=== PATIENT | male | born 1960 | race Caucasian/White ===

== ENCOUNTER 2016-11-02 12:49 | Emergency (ER) | payer OTHER ==
[~2016-11-02] VITALS: Wt 120.5 kg
[~2016-11-02 12:49] MED LIST: DOCU-144 PO; FAMO-18 PO; HYDR-762 PO; HYDR25SU23 PR; IBUP800T25 PO; ONDA4TAB35 PO
[2016-11-02] MEDS ORDERED: EPIN0.3P4 INJ (14:11)
[2016-11-02] MEDS ORDERED: IBUP800T25 PO (14:11)
[2016-11-02] MEDS ORDERED: ALPR0.5T PO (14:11)
[2016-11-02] MEDS ORDERED: PRED20TA PO (14:11)
--- NOTE | 2016-11-02 14:16 | ERD ---
ER Documentation Chief Complaint Date/Time DATE: 11/02/16 TIME: 14:13 Chief Complaint TONGUE SWELLING NO STRIDOR INTERMITTENT FOR 2 WKS. NO SOB NOTED. HPI 56-year-old man with multiple complaints including low back pain, tongue swelling, and generalized anxiety. Patient has a long recurrent history of tongue swelling and states the only thing that helps is ibuprofen 800 mg. Patient is also requesting alprazolam for anxiety. Patient denies suicidal homicidal ideation, no fevers or chills, no chest pain or shortness of breath, no calf or leg swelling. Patient denies headache or blurry vision. ROS All systems reviewed and are negative except as per history of present illness. Medications Home Meds Active Scripts Alprazolam* (Xanax*) 0.5 Mg Tab, 0.5 MG PO TID Y for ANXIETY, #12 TAB Prov:ROSE LESTER MD 11/02/16 Epinephrine (Epipen 2-Jordan) 0.3 Mg/0.3 Ml Pen.injctr, 1 EA INJ ONCE Y for ALLERGIC REACTION, #1 EA Prov:ROSE LESTER MD 11/02/16 Prednisone* (Prednisone*) 20 Mg Tab, 40 MG PO DAILY for 4 Days, TAB Prov:ROSE LESTER MD 11/02/16 Ibuprofen* (Motrin*) 800 Mg Tab, 800 MG PO TID Y for PAIN AND/OR INFLAMMATION, # 30 TAB Prov:ROSE LESTER MD 11/02/16 Hydrocortisone Acetate (Anusol-Hc) 25 Mg Supp.rect, 1 SUPP RI BID Y for HEMORROID PAIN/ITCHING, #12 SUPP.RECT Prov:JUDY COLEMAN PA-C 06/22/16 Docusate Sodium* (Colace*) 100 Mg Capsule, 100 MG PO TID, #30 CAP Prov:JUDY COLEMAN PA-C 06/22/16 Famotidine* (Pepcid*) 20 Mg Tablet, 20 MG PO BID, #30 TAB Prov:JUDY COLEMAN PA-C 06/22/16 Ibuprofen* (Motrin*) 800 Mg Tab, 800 MG PO Q6, #30 TAB Prov:JUDY COLEMAN PA-C 06/22/16 Ibuprofen* (Motrin*) 800 Mg Tab, 800 MG PO Q6, #30 TAB Prov:CLAYTON FERREIRA PA-C 05/12/16 Ibuprofen* (Ibuprofen*) 800 Mg Tablet, 800 MG PO Q8H, #30 TAB Prov:BRANDONJOSE MENA 03/18/16 Famotidine* (Pepcid*) 20 Mg Tablet, 20 MG PO BID for 7 Days, TAB Prov:CLAYTON FERREIRA PA-C 02/23/16 Docusate Sodium* (Colace*) 100 Mg Capsule, 100 MG PO BID, #30 CAP Prov:CLAYTON FERREIRA PA-C 02/23/16 Ibuprofen* (Motrin*) 800 Mg Tab, 800 MG PO Q6, #30 TAB Prov:CLAYTON FERREIRA PA-C 02/23/16 Ondansetron Hcl* (Zofran* ODT) 4 mg -ODT Tab.disper, 4 MG PO Q6 Y for NAUSEA AND /OR VOMITING, #10 TAB Prov:CURTIS CHAUDHARI MD 03/07/15 Hydrocodone Bit-Acetaminophen* (Inkom*) 10-325 Mg Tablet, 1 TAB PO Q6 Y for PAIN , #10 TAB Prov:CURTIS CHAUDHARI MD 03/07/15 Allergies Allergies: Coded Allergies: Penicillins (Verified Allergy, Unknown, 05/11/16) PMhx/Soc Anxiety, chronic pain syndrome, chronic recurrent glossal edema 6 years, chronic gastritis Hx Miscellaneous Medical Probl: Yes (THYROID) Hx Alcohol Use: No Hx Substance Use: No Hx Tobacco Use: No FmHx Family History: No diabetes Physical Exam Vitals Vital Signs Date Time Temp Pulse Resp B/P Pulse Ox O2 Delivery O2 Flow Rate FiO2 11/02/16 12:54 97.5 102 22 127/83 98 Physical Exam GENERAL: Well-developed, well-nourished, well-hydrated, anxious HEENT: Moist mucous membranes, pink conjunctiva, no cervical spine tenderness or step-off deformities, no goiter, no jaundice or icterus, positive macroglossia without evidence of glossal edema or submandibular induration. NEURO: Alert and oriented 3, cranial nerves II through XII intact bilaterally, pupils equal round reactive to light, no focal deficits or facial asymmetry, sensation intact distally Strength 5/5 in upper and lower extremities bilaterally CARDIAC: Regular rate and rhythm, no murmurs rubs or gallops LUNGS: Clear bilaterally no wheezing crackles or stridor ABDOMEN: Soft nontender, no guarding, no rigidity, no rebound, no psoas sign no obturator sign. Normoactive bowel sounds SKIN: Warm and dry to touch, no abrasions, contusions, or hematomas, no lacerations, no ecchymosis, no target lesions, and without ulcers EXTREMITIES: No clubbing cyanosis or edema, calves are bilaterally symmetrical, no Homans sign, no popliteal cord sign. Distal pulses equal and bilateral PSYCH: Anxious Results 24 hrs Current Medications Medications (Trade) Dose Ordered Sig/Magen Route PRN Reason Start Time Stop Time Status Last Admin Dose Admin Ibuprofen (Motrin) 800 mg ONCE ONCE PO 11/02/16 14:30 11/02/16 14:31 DC 11/02/16 14:26 Prednisone (Prednisone) 40 mg ONCE ONCE PO 11/02/16 14:30 11/02/16 14:31 DC 11/02/16 14:26 Procedures/MDM My suspicion for acute allergic reaction is low although I did administered ibuprofen 800 mg p.o. prednisone 40 mg p.o. I will manage him as an outpatient with anxiolytics and told him to follow-up with his PMD for continued outpatient management. Differential diagnoses considered, included but not limited to peritonsillar abscess, Kana's angina, anaphylaxis, cancer, abdominal aortic aneurysm, sepsis , stroke, meningitis, encephalitis, pneumonia, appendicitis, cholecystitis, bowel obstruction, pyelonephritis, nephrolithiasis, cystitis, as well as metabolic, hematologic, and electrolyte abnormalities. As well as abscess, cellulitis, fractures, and dislocations. Patient feels much better at this time, and vital signs are normal, symptoms have improved. I did give strict instructions to return to the ED if symptoms continue or worsen, patient will otherwise follow-up with primary care physician. Patient understood instructions and agreed to plan. Departure Diagnosis: Primary Impression: Anxiety Additional Impressions: Back strain Encounter type: initial encounter Qualified Code: S39.012A - Back strain, initial encounter Allergic reaction Encounter type: initial encounter Qualified Code: T78.40XA - Allergic reaction, initial encounter Macroglossia, congenital Condition: Good Patient Instructions: Allergic Reaction, Other (Local), Anxiety Reaction ROSE LESTER MD Nov 02, 2016 14:16
[2016-11-02] MEDS ORDERED: predniSONE 20 MG TAB PO ONE (14:30)
[2016-11-02] MEDS ORDERED: IBUPROFEN 800 MG TAB PO ONE (14:30)
== END 2016-11-02 14:28 | disposition home or self-care (01) ==
LOC: FTE 12:49
DX: F41.9 Anxiety disorder, unspecified (principal); S39.012A Strain of muscle, fascia and tendon of lower back, initial encounter; Q38.2 Macroglossia; X58.XXXA Exposure to other specified factors, initial encounter; Y92.9 Unspecified place or not applicable
CPT/HCPCS: J7512; Z7502; Z7610; 99284

== ENCOUNTER 2017-01-21 14:57 | Emergency (ER) | payer OTHER ==
[~2017-01-21] VITALS: Ht 170.2 cm; Wt 118.0 kg
[~2017-01-21 14:57] MED LIST changes: +ALPR0.5T PO; +EPIN0.3P4 INJ; +PRED20TA PO
[2017-01-21 14:59] VITALS: Ht 170.2 cm; Wt 118.0 kg
[2017-01-21] MEDS ORDERED: DIPHENHYDRAMINE 50 MG INJ IV STA (17:38)
[2017-01-21] MEDS ORDERED: SOD CHLORIDE 0.9% 1,000 ML IV STA (17:38)
[2017-01-21] MEDS ORDERED: FAMOTIDINE 20 MG INJ IV STA (17:38)
[2017-01-21] MEDS ORDERED: METHYLPREDNISOLONE 125 MG INJ IV STA (17:38)
[2017-01-21 18:11] LABS: ADD SCAN DIFF NO
[2017-01-21 18:13] LABS: BASOPHILS % 0.2 % (0.0-2.0); EOSINOPHILS # 0.2 10^3/ul (0.0-0.5); EOSINOPHILS % 1.6 % (0.0-7.0); HEMATOCRIT 47.2 % (42.0-52.0); HEMOGLOBIN 15.3 g/dl (14.0-18.0); LYMPHOCYTES # 1.7 10^3/ul (0.8-2.9); LYMPHOCYTES % 17.8 % (15.0-51.0); MEAN CORPUSCULAR HEMOGLOBIN 30.9 pg (29.0-33.0); MEAN CORPUSCULAR HGB CONC 32.4 g/dl (32.0-37.0); MEAN CORPUSCULAR VOLUME 95.4 fl (82.0-101.0); MONOCYTE # 0.9 10^3/ul (0.3-0.9); MONOCYTES % 9.2 % (0.0-11.0); NEUTROPHIL # 6.8 10^3/ul (1.6-7.5); NEUTROPHILS % 70.8 % (39.0-77.0); PLATELET COUNT 265 10^3/UL (140-415); RED BLOOD COUNT 4.95 10^6/ul (4.70-6.10); RED CELL DISTRIBUTION WIDTH 14.3 % (11.5-14.5); WHITE BLOOD COUNT 9.6 10^3/ul (4.8-10.8)
[2017-01-21 18:22] LABS: POTASSIUM 3.8 mmol/L (3.5-5.1)
[2017-01-21 18:24] LABS: ALBUMIN/GLOBULIN RATIO 1.21; BILIRUBIN,INDIRECT 0.2 mg/dl (0-1.1); BILIRUBIN,TOTAL 0.2 mg/dl (0.2-1.3); CREATININE 1.1 mg/dl (0.61-1.24)
[2017-01-21 18:25] LABS: CALCIUM 9.1 mg/dl (8.4-10.2)
[2017-01-21 18:35] LABS: TOTAL PROTEIN 7.3 g/dl (6.1-8.1)
--- NOTE | 2017-01-21 20:17 | ERA ---
ER Documentation Chief Complaint Date/Time DATE: 01/21/17 TIME: 20:14 Chief Complaint ABDOMINAL PAIN X 3 WEEKS AND TONGUE PAIN FOR YEARS HPI This is a 56-year-old male who states that he said diarrhea for 3 weeks is watery and brown and says that his tongue is swelling. States he had a swollen tongue from month and was seen at other ERs and received steroids. He has no difficulty swallowing or speaking no voice changes no shortness of breath no rash. Patient is very tangential about his complaints. When he sticks out his tongue he purposefully bites it so that it gets more swollen looking ROS All systems reviewed and are negative except as per history of present illness. Medications Home Meds Active Scripts Alprazolam* (Xanax*) 0.5 Mg Tab, 0.5 MG PO TID Y for ANXIETY, #12 TAB Prov:ROSE LESTER MD 11/02/16 Epinephrine (Epipen 2-Jordan) 0.3 Mg/0.3 Ml Pen.injctr, 1 EA INJ ONCE Y for ALLERGIC REACTION, #1 EA Prov:ROSE LESTER MD 11/02/16 Prednisone* (Prednisone*) 20 Mg Tab, 40 MG PO DAILY for 4 Days, TAB Prov:ROSE LESTER MD 11/02/16 Ibuprofen* (Motrin*) 800 Mg Tab, 800 MG PO TID Y for PAIN AND/OR INFLAMMATION, # 30 TAB Prov:ROSE LESTER MD 11/02/16 Hydrocortisone Acetate (Anusol-Hc) 25 Mg Supp.rect, 1 SUPP [place] BID Y for HEMORROID PAIN/ITCHING, #12 SUPP.RECT Prov:JUDY COLEMAN PA-C 06/22/16 Docusate Sodium* (Colace*) 100 Mg Capsule, 100 MG PO TID, #30 CAP Prov:JUDY COLEMAN PA-C 06/22/16 Famotidine* (Pepcid*) 20 Mg Tablet, 20 MG PO BID, #30 TAB Prov:JUDY COLEMAN PA-C 06/22/16 Ibuprofen* (Motrin*) 800 Mg Tab, 800 MG PO Q6, #30 TAB Prov:JUDY COLEMAN PA-C 06/22/16 Ibuprofen* (Motrin*) 800 Mg Tab, 800 MG PO Q6, #30 TAB Prov:CLAYTON FERREIRAC 05/12/16 Ibuprofen* (Ibuprofen*) 800 Mg Tablet, 800 MG PO Q8H, #30 TAB Prov:TAYLORJOSE FOSS RAJESH 03/18/16 Famotidine* (Pepcid*) 20 Mg Tablet, 20 MG PO BID for 7 Days, TAB Prov:CLAYTON FERREIRAC 02/23/16 Docusate Sodium* (Colace*) 100 Mg Capsule, 100 MG PO BID, #30 CAP Prov:CLAYTON FERREIRA PA-C 02/23/16 Ibuprofen* (Motrin*) 800 Mg Tab, 800 MG PO Q6, #30 TAB Prov:CLAYTON FERREIRA PA-C 02/23/16 Ondansetron Hcl* (Zofran* ODT) 4 mg -ODT Tab.disper, 4 MG PO Q6 Y for NAUSEA AND /OR VOMITING, #10 TAB Prov:CURTIS CHAUDHARI MD 03/07/15 Hydrocodone Bit-Acetaminophen* (Aldrich*) 10-325 Mg Tablet, 1 TAB PO Q6 Y for PAIN , #10 TAB Prov:CURTIS CAHUDHARI MD 03/07/15 Allergies Allergies: Coded Allergies: Penicillins (Verified Allergy, Unknown, 05/11/16) PMhx/Soc History of Surgery: Yes (ABDOMINAL SURGERY) Anesthesia Reaction: No Hx Neurological Disorder: No Hx Respiratory Disorders: No Hx Cardiac Disorders: No Hx Psychiatric Problems: No Hx Miscellaneous Medical Probl: Yes (THYROID) Hx Alcohol Use: No Hx Substance Use: No Hx Tobacco Use: Yes (occasional) Smoking Status: Current some day smoker FmHx Family History: No coronary disease Physical Exam Vitals Vital Signs Date Time Temp Pulse Resp B/P Pulse Ox O2 Delivery O2 Flow Rate FiO2 01/21/17 14:59 98.4 86 20 168/95 98 Physical Exam Const: Well-developed, well-nourished Head: Atraumatic, normocephalic Eyes: Normal Conjunctiva, PERRLA, EOMI, normal sclera, no nystagmus ENT: Normal External Ears, Nose and Mouth, moist mucus membranes. Neck: Full range of motion. No meningismus, no lymphadenopathy. Resp: Clear to auscultation bilaterally, no wheezing, rhonchi, rales Cardio: Regular rate and rhythm, no murmurs, S1 S2 present Abd: Soft, non tender x 4, non distended. Normal bowel sounds, no guarding or rebound, no pulsitile abdominal masses or bruits Skin: No petechiae or rashes, no ecchymosis , no maculopapular rash Back: No midline or flank tenderness Ext: No cyanosis, or edema, FROM x 4, normal inspection, neurovascularly intact x 4 Neur: Awake and alert, STR 5/5 x 4, sensation intact x 4, no focal findings, cerebellum intact Psych: Normal Mood and Affect Result Diagram: 01/21/17 1745 01/21/17 1745 Results 24 hrs Laboratory Tests Test 01/21/17 17:45 White Blood Count 9.610^3/ul Red Blood Count 4.9510^6/ul Hemoglobin 15.3g/dl Hematocrit 47.2% Mean Corpuscular Volume 95.4fl Mean Corpuscular Hemoglobin 30.9pg Mean Corpuscular Hemoglobin Concent 32.4g/dl Red Cell Distribution Width 14.3% Platelet Count 45027^3/UL Mean Platelet Volume 10.0fl Neutrophils % 70.8% Lymphocytes % 17.8% Monocytes % 9.2% Eosinophils % 1.6% Basophils % 0.2% Nucleated Red Blood Cells % 0.0/100WBC Neutrophils # 6.810^3/ul Lymphocytes # 1.710^3/ul Monocytes # 0.910^3/ul Eosinophils # 0.210^3/ul Basophils # 0.010^3/ul Nucleated Red Blood Cells # 0.010^3/ul Sodium Level 140mmol/L Potassium Level 3.8mmol/L Chloride Level 103mmol/L Carbon Dioxide Level 28mmol/L Anion Gap 13 Blood Urea Nitrogen 17mg/dl Creatinine 1.10mg/dl Glucose Level 90mg/dl Calcium Level 9.1mg/dl Total Bilirubin 0.2mg/dl Direct Bilirubin 0.00mg/dl Indirect Bilirubin 0.2mg/dl Aspartate Amino Transf (AST/SGOT) 14IU/L Alanine Aminotransferase (ALT/SGPT) 26IU/L Alkaline Phosphatase 87IU/L Total Protein 7.3g/dl Albumin 4.0g/dl Globulin 3.30g/dl Albumin/Globulin Ratio 1.21 Current Medications Medications (Trade) Dose Ordered Sig/Magen Route PRN Reason Start Time Stop Time Status Last Admin Dose Admin Sodium Chloride (NS) 1,000 ml @ 1,000 mls/hr Q1H STAT IV 01/21/17 17:38 01/21/17 18:37 DC 01/21/17 17:57 Diphenhydramine HCl (Benadryl) 25 mg ONCE STAT IV 01/21/17 17:38 01/21/17 17:40 DC 01/21/17 17:57 Famotidine (Pepcid Iv) 20 mg ONCE STAT IV 01/21/17 17:38 01/21/17 17:40 DC 01/21/17 17:57 Methylprednisolone Sodium Succinate (Solu-Medrol) 125 mg ONCE STAT IV 01/21/17 17:38 01/21/17 17:40 DC 01/21/17 17:57 Procedures/MDM The patient eloped from the ER. Was unable to go over his labs with him and provide disposition Departure Diagnosis: Primary Impression: Diarrhea Qualified Code: R19.7 - Diarrhea, unspecified type Condition: NAE Bonilla DO January 21, 2017 20:17
== END 2017-01-21 19:52 | disposition left against medical advice (07) ==
LOC: E/R 14:57
DX: R19.7 Diarrhea, unspecified (principal)
CPT/HCPCS: 36415; 80053; 85025; 96374; 96375; J1200; J2930; J7030; Z7502; Z7610

== ENCOUNTER 2017-01-25 08:00 | Emergency (ER) | payer OTHER ==
[~2017-01-25] VITALS: Ht 167.6 cm; Wt 112.0 kg
[2017-01-25 08:04] VITALS: Ht 167.6 cm; Wt 112.0 kg
[2017-01-25] MEDS ORDERED: IBUP-1542 PO (08:43)
--- NOTE | 2017-01-25 16:05 | ERD ---
ER Documentation Chief Complaint Date/Time DATE: 01/25/17 TIME: 16:02 Chief Complaint SORE THROAT , TONGUE SWELLING X FEW WEEKS HPI 56-year-old man complains of tongue swelling similar multiple previous episodes. This is been going on for a few weeks, he is also here requesting his opioid and benzodiazepine prescriptions, which he states he takes for chronic symptoms. He states ibuprofen helps with his tongue swelling. He denies fevers or chills, no difficulty swallowing, no chest pain or shortness of breath. ROS All systems reviewed and are negative except as per history of present illness. Medications Home Meds Active Scripts Ibuprofen* (Motrin*) 600 Mg Tab, 600 MG PO Q8 for PAIN AND/OR INFLAMMATION, #30 TAB Prov:ROSE LESTER MD 01/25/17 Alprazolam* (Xanax*) 0.5 Mg Tab, 0.5 MG PO TID Y for ANXIETY, #12 TAB Prov:ROSE LESTER MD 11/02/16 Epinephrine (Epipen 2-Jordan) 0.3 Mg/0.3 Ml Pen.injctr, 1 EA INJ ONCE Y for ALLERGIC REACTION, #1 EA Prov:ROSE LESTER MD 11/02/16 Prednisone* (Prednisone*) 20 Mg Tab, 40 MG PO DAILY for 4 Days, TAB Prov:ROSE LESTER MD 11/02/16 Ibuprofen* (Motrin*) 800 Mg Tab, 800 MG PO TID Y for PAIN AND/OR INFLAMMATION, # 30 TAB Prov:ROSE LESTER MD 11/02/16 Hydrocortisone Acetate (Anusol-Hc) 25 Mg Supp.rect, 1 SUPP [place] BID Y for HEMORROID PAIN/ITCHING, #12 SUPP.RECT Prov:JUDY COLEMAN PA-C 06/22/16 Docusate Sodium* (Colace*) 100 Mg Capsule, 100 MG PO TID, #30 CAP Prov:JUDY COLEMAN PA-C 06/22/16 Famotidine* (Pepcid*) 20 Mg Tablet, 20 MG PO BID, #30 TAB Prov:JUDY COLEMAN PA-C 06/22/16 Ibuprofen* (Motrin*) 800 Mg Tab, 800 MG PO Q6, #30 TAB Prov:JUDY COLEMAN PA-C 06/22/16 Ibuprofen* (Motrin*) 800 Mg Tab, 800 MG PO Q6, #30 TAB Prov:CLAYTON FERREIRA PA-C 05/12/16 Ibuprofen* (Ibuprofen*) 800 Mg Tablet, 800 MG PO Q8H, #30 TAB Prov:JOSE TAYLOR RAJESH 03/18/16 Famotidine* (Pepcid*) 20 Mg Tablet, 20 MG PO BID for 7 Days, TAB Prov:CLAYTON FERREIRA PA-C 02/23/16 Docusate Sodium* (Colace*) 100 Mg Capsule, 100 MG PO BID, #30 CAP Prov:CLAYTON FERREIRA PA-C 02/23/16 Ibuprofen* (Motrin*) 800 Mg Tab, 800 MG PO Q6, #30 TAB Prov:CLAYTON FERREIRA PA-C 02/23/16 Ondansetron Hcl* (Zofran* ODT) 4 mg -ODT Tab.disper, 4 MG PO Q6 Y for NAUSEA AND /OR VOMITING, #10 TAB Prov:CURTIS CHAUDHARI MD 03/07/15 Hydrocodone Bit-Acetaminophen* ([place]*) 10-325 Mg Tablet, 1 TAB PO Q6 Y for PAIN , #10 TAB Prov:CURTIS CHAUDHARI MD 03/07/15 Allergies Allergies: Coded Allergies: Penicillins (Verified Allergy, Unknown, 05/11/16) PMhx/Soc Macroglossia, opioid dependence, chronic pain History of Surgery: Yes (ABDOMINAL SURGERY) Anesthesia Reaction: No Hx Neurological Disorder: No Hx Respiratory Disorders: No Hx Cardiac Disorders: No Hx Psychiatric Problems: No Hx Miscellaneous Medical Probl: Yes (THYROID) Hx Alcohol Use: No Hx Substance Use: No Hx Tobacco Use: Yes (occasional) Smoking Status: Current some day smoker FmHx Family History: No diabetes Physical Exam Vitals Vital Signs Date Time Temp Pulse Resp B/P Pulse Ox O2 Delivery O2 Flow Rate FiO2 01/25/17 08:04 98.2 98 18 171/86 98 Physical Exam GENERAL: Well-developed, well-nourished, well-hydrated, in no apparent distress , looks nontoxic in appearance HEENT: Moist mucous membranes, pink conjunctiva, no cervical spine tenderness or step-off deformities, no goiter, no jaundice or icterus, extraocular movements intact without pain. No submandibular induration, and no pharyngeal erythema NEURO: Alert and oriented 3, cranial nerves II through XII intact bilaterally, pupils equal round reactive to light, no focal deficits or facial asymmetry, sensation intact distally Strength 5/5 in upper and lower extremities bilaterally CARDIAC: Regular rate and rhythm, no murmurs rubs or gallops LUNGS: Clear bilaterally no wheezing crackles or stridor ABDOMEN: Soft nontender, no guarding, no rigidity, no rebound, no psoas sign no obturator sign. Normoactive bowel sounds SKIN: Warm and dry to touch, no abrasions, contusions, or hematomas, no lacerations, no ecchymosis, no target lesions, and without ulcers EXTREMITIES: No clubbing cyanosis or edema, calves are bilaterally symmetrical, no Homans sign, no popliteal cord sign. Distal pulses equal and bilateral PSYCH: Normal affect without agitation or irritability Procedures/MDM Physical examination is unremarkable, patient bites his tongue during examination. He may have borderline macroglossia although no signs of anaphylaxis or allergic reaction. There is no soft tissue induration, edema, or erythema. I deferred all opioid and benzodiazepine prescriptions to his PMD although agreed to fill an ibuprofen prescription. Differential diagnoses considered, included but not limited to acute coronary syndrome, pulmonary embolism, aortic dissection, abdominal aortic aneurysm, sepsis, stroke, meningitis, encephalitis, pneumonia, appendicitis, cholecystitis , bowel obstruction, pyelonephritis, nephrolithiasis, cystitis, as well as metabolic, hematologic, and electrolyte abnormalities. As well as abscess, cellulitis, fractures, and dislocations. Patient feels much better at this time, and vital signs are normal, symptoms have improved. I did give strict instructions to return to the ED if symptoms continue or worsen, patient will otherwise follow-up with primary care physician. Patient understood instructions and agreed to plan. Departure Diagnosis: Primary Impression: Macroglossia, congenital Additional Impression: Encounter for medication refill Condition: Good Patient Instructions: Chronic Pain Referrals: BALDOMERO HENDRICKS MD [facility] YOU HAVE RECEIVED A MEDICAL SCREENING EXAM AND THE RESULTS INDICATE THAT YOU DO NOT HAVE A CONDITION THAT REQUIRES URGENT TREATMENT IN THE EMERGENCY DEPARTMENT. FURTHER EVALUATION AND TREATMENT OF YOUR CONDITION CAN WAIT UNTIL YOU ARE SEEN IN YOUR DOCTORS OFFICE WITHIN THE NEXT 1-2 DAYS. IT IS YOUR RESPONSIBILITY TO MAKE AN APPOINTMENT FOR FOLOW-UP CARE. IF YOU HAVE A PRIMARY DOCTOR --you should call your primary doctor and schedule an appointment IF YOU DO NOT HAVE A PRIMARY DOCTOR YOU CAN CALL OUR PHYSICIAN REFERRAL HOTLINE AT IF YOU CAN NOT AFFORD TO SEE A PHYSICIAN YOU CAN CHOSE FROM THE FOLLOWING [facility] [address] [facility] [address] [facility] [address] [facility] [address] [facility] [address] [facility] [facility] [address] [facility]. [facility] YOU HAVE RECEIVED A MEDICAL SCREENING EXAM AND THE RESULTS INDICATE THAT YOU DO NOT HAVE A CONDITION THAT REQUIRES URGENT TREATMENT IN THE EMERGENCY DEPARTMENT. FURTHER EVALUATION AND TREATMENT OF YOUR CONDITION CAN WAIT UNTIL YOU ARE SEEN IN YOUR DOCTORS OFFICE WITHIN THE NEXT 1-2 DAYS. IT IS YOUR RESPONSIBILITY TO MAKE AN APPOINTMENT FOR FOLOW-UP CARE. IF YOU HAVE A PRIMARY DOCTOR --you should call your primary doctor and schedule and appointment IF YOU DO NOT HAVE A PRIMARY DOCTOR YOU CAN CALL OUR PHYSICIAN REFERRAL HOTLINE AT . IF YOU CAN NOT AFFORD TO SEE A PHYSICIAN YOU CAN CHOSE FROM THE FOLLOWING [facility]: [facility] [address] [place] [address] [facility] [address] [place] [address] [facility] [address] [place] [address] ROSE LESTER MD January 25, 2017 16:05
== END 2017-01-25 08:54 | disposition home or self-care (01) ==
LOC: FTE 08:00
DX: Q38.2 Macroglossia (principal); F17.210 Nicotine dependence, cigarettes, uncomplicated; Z76.0 Encounter for issue of repeat prescription
CPT/HCPCS: 99283

== ENCOUNTER 2017-06-24 09:27 | Emergency (ER) | payer OTHER ==
[~2017-06-24] VITALS: Ht 167.6 cm; Wt 113.5 kg
[~2017-06-24 09:27] MED LIST changes: -FAMO-18 PO; +FAMO-96 PO; +IBUP-1542 PO
[2017-06-24 09:33] VITALS: Ht 167.6 cm; Wt 113.5 kg
[2017-06-24] MEDS ORDERED: IBUPROFEN 800 MG TAB PO ONE (10:30)
[2017-06-24] MEDS ORDERED: DEXAMETHASONE 10 MG/ML 1 ML INJ IM ONE (10:30)
[2017-06-24] MEDS ORDERED: DOCU-144 PO (11:25)
[2017-06-24] MEDS ORDERED: FAMO-96 PO (11:25)
[2017-06-24] MEDS ORDERED: IBUP800T25 PO (11:25)
[2017-06-24] MEDS ORDERED: MED4DP PO (11:40)
--- NOTE | 2017-06-24 12:50 | ERD ---
ER Documentation Chief Complaint Date/Time DATE: 06/24/17 TIME: 12:44 Chief Complaint throat swelling HPI This is a 57-year-old male presents to the ER complaining of tongue swelling due to thyroid "acting up." The patient states that he has a thyroid disorder, unknown whether hypothyroid or hyperthyroid and he is currently not taking any medications for his thyroid problems. He states that he has had tongue swelling over the last 2 years and the last episode began 20 days ago. He states that ibuprofen 800 mg helps him with the swelling. He has run out of ibuprofen. Patient denies any lip swelling. He denies eating any new foods, or taking any new medications. He has an allergy to penicillin, has not had any penicillin. Patient denies any chest pain, shortness of breath, difficulty in breathing. Does admit to some mild sore throat, which is worse whenever he swallows. ROS 12 point review of systems was done, all negative except per HPI. Medications Home Meds Active Scripts Methylprednisolone* (Medrol* DOSE PACK) 4 Mg/Dose-Pack Tab.ds.pk, 4 MG PO . DIRECTED for 6 Days, PACKET Prov:SHARITA TALBOT 06/24/17 Docusate Sodium* (Colace*) 100 Mg Capsule, 100 MG PO TID, #30 CAP Prov:SHARITA TALBOT 06/24/17 Famotidine* (Pepcid*) 20 Mg Tablet, 20 MG PO BID for 14 Days, TAB Prov:SHARITA TALBOT 06/24/17 Ibuprofen* (Motrin*) 800 Mg Tab, 800 MG PO Q8, #30 TAB Prov:SHARITA TALBOT 06/24/17 Ibuprofen* (Motrin*) 600 Mg Tab, 600 MG PO Q8 for PAIN AND/OR INFLAMMATION, #30 TAB Prov:ROSE LESTER MD 01/25/17 Alprazolam* (Xanax*) 0.5 Mg Tab, 0.5 MG PO TID Y for ANXIETY, #12 TAB Prov:ROSE LESTER MD 11/02/16 Epinephrine (Epipen 2-[place]) 0.3 Mg/0.3 Ml Pen.injctr, 1 EA INJ ONCE Y for ALLERGIC REACTION, #1 EA Prov:ROSE LESTER MD 11/02/16 Prednisone* (Prednisone*) 20 Mg Tab, 40 MG PO DAILY for 4 Days, TAB Prov:ROSE LESTER MD 11/02/16 Ibuprofen* (Motrin*) 800 Mg Tab, 800 MG PO TID Y for PAIN AND/OR INFLAMMATION, # 30 TAB Prov:ROSE LESTER MD 11/02/16 Hydrocortisone Acetate (Anusol-Hc) 25 Mg Supp.rect, 1 SUPP CO BID Y for HEMORROID PAIN/ITCHING, #12 SUPP.RECT Prov:JUDY COLEMAN-C 06/22/16 Docusate Sodium* (Colace*) 100 Mg Capsule, 100 MG PO TID, #30 CAP Prov:JUDY COLEMAN-C 06/22/16 Famotidine* (Pepcid*) 20 Mg Tablet, 20 MG PO BID, #30 TAB Prov:JUDY COLEMAN-C 06/22/16 Ibuprofen* (Motrin*) 800 Mg Tab, 800 MG PO Q6, #30 TAB Prov:JUDY COLEMAN-C 06/22/16 Ibuprofen* (Motrin*) 800 Mg Tab, 800 MG PO Q6, #30 TAB Prov:CLAYTON FERREIRAC 05/12/16 Ibuprofen* (Ibuprofen*) 800 Mg Tablet, 800 MG PO Q8H, #30 TAB Prov:JOSE TAYLORC 03/18/16 Famotidine* (Pepcid*) 20 Mg Tablet, 20 MG PO BID for 7 Days, TAB Prov:CLAYTON FERREIRA-C 02/23/16 Docusate Sodium* (Colace*) 100 Mg Capsule, 100 MG PO BID, #30 CAP Prov:CLAYTON FERREIRA-C 02/23/16 Ibuprofen* (Motrin*) 800 Mg Tab, 800 MG PO Q6, #30 TAB Prov:CLAYTON FERREIRA-C 02/23/16 Ondansetron Hcl* (Zofran* ODT) 4 mg -ODT Tab.disper, 4 MG PO Q6 Y for NAUSEA AND /OR VOMITING, #10 TAB Prov:CURTIS CHAUDHARI MD 03/07/15 Hydrocodone Bit-Acetaminophen* ([place]*) 10-325 Mg Tablet, 1 TAB PO Q6 Y for PAIN , #10 TAB Prov:CURTIS CHAUDHARI MD 03/07/15 Allergies Allergies: Coded Allergies: Penicillins (Verified Allergy, Unknown, 06/24/17) PMhx/Soc History of Surgery: Yes (ABDOMINAL SURGERY) Anesthesia Reaction: No Hx Neurological Disorder: No Hx Respiratory Disorders: No Hx Cardiac Disorders: No Hx Psychiatric Problems: No Hx Miscellaneous Medical Probl: Yes (THYROID) Hx Alcohol Use: No Hx Substance Use: No Hx Tobacco Use: Yes (occasional) Smoking Status: Current every day smoker Physical Exam Vitals Vital Signs Date Time Temp Pulse Resp B/P Pulse Ox O2 Delivery O2 Flow Rate FiO2 06/24/17 09:33 98.2 80 20 138/87 97 Physical Exam GENERAL: The patient is well developed and appropriate for usual state of health , in no apparent distress. HEENT: Atraumatic. Conjunctivae are pink. Pupils equal, round, and reactive to light. Extraocular muscles are grossly intact. Bilateral tympanic membranes are clear with no evidence of erythema, effusion or dulling of the light reflex. The oropharynx is clear with no erythema or exudates. Patient is normal. Clear , patent airway. Enlarged tongue, though this is likely his baseline. No eye or lip swelling. CHEST: Clear to auscultation bilaterally. There are no rales, wheezes or rhonchi. HEART: Regular rate and rhythm. No murmurs, clicks, rubs or gallops. NEURO: Alert and oriented. SKIN: There is no apparent rash or petechia. The skin is warm and dry. Results 24 hrs Current Medications Medications (Trade) Dose Ordered Sig/Magen Route PRN Reason Start Time Stop Time Status Last Admin Dose Admin Ibuprofen (Motrin) 800 mg ONCE ONCE PO 06/24/17 10:30 06/24/17 10:31 DC 06/24/17 10:09 Dexamethasone (Decadron) 10 mg ONCE ONCE IM 06/24/17 10:30 06/24/17 10:31 DC 06/24/17 10:10 Procedures/MDM This is a 57-year-old male presents to the ER with tongue swelling. Patient was given 800 mg Ibuprofen in the ER and Decadron. Patient states that he felt much better. Ports that his symptoms are always improved with ibuprofen, which she has run out of and is requesting a refill for. He is also requesting a refill for docusate, famotidine. Patient does not have any significant abnormalities on physical examination. While patient's tongue does appear to be large, there is no evidence of significant swelling. He does not have any facial edema. The patient's airway is patent he does not have any difficulty in breathing, wheezing. No evidence of angioedema, airway compromise, inability to handle oral secretions or stridor. Patient's mentation is normal. There is an allergic reaction as patient has not had any contact with any new substances and has had this over the last few years. He also does not have any rashes. Patient will be sent home with a short course of steroids to help with swelling. He is to follow-up with his primary care doctor within 1-2 days or return to ER sooner if symptoms worsen. My medical decision making shared with the patient understands and agrees with plan. Departure Diagnosis: Primary Impression: Tongue swelling Condition: Stable Patient Instructions: Self-Care for Sore Throats Additional Instructions: Call your primary care doctor TOMORROW for an appointment during the next 1-2 days.See the doctor sooner or return here if your condition worsens before your appointment time. SHARITA TALBOT Jun 24, 2017 12:50
== END 2017-06-24 11:52 | disposition home or self-care (01) ==
LOC: FTE 09:27
DX: K14.8 Other diseases of tongue (principal); F17.210 Nicotine dependence, cigarettes, uncomplicated
CPT/HCPCS: 87880; 96372; J1100; Z7502; Z7610

== ENCOUNTER 2017-07-26 14:50 | Emergency (ER) | payer OTHER ==
[~2017-07-26] VITALS: Ht 175.3 cm; Wt 119.0 kg
[~2017-07-26 14:50] MED LIST changes: +MED4DP PO
[2017-07-26 14:52] VITALS: Ht 175.3 cm; Wt 119.0 kg
[2017-07-26] MEDS ORDERED: PRED20TA PO (16:17)
[2017-07-26] MEDS ORDERED: IBUP800T25 PO (16:17)
[2017-07-26] MEDS ORDERED: DOCU-144 PO (16:17)
[2017-07-26] MEDS ORDERED: FAMO20TA18 PO (16:17)
--- NOTE | 2017-07-26 16:20 | ERD ---
ER Documentation Chief Complaint Chief Complaint swelling of tongue x 3 days , no sob , talking in full sentences HPI This patient is a 57-year-old male who presents complaining of swelling of his tongue that he has had for 3 days. He states this happens about once a month as he has a thyroid issue is not sure if it is hyper or hypo-. He has been seen here multiple times for this. He has good relief of his symptoms with Pepcid, Colace, steroids, and Motrin and he would like a refill of these medications. He has no difficulty breathing, no difficulty speaking. No fever. No rash. No other complaints. ROS All systems reviewed and are negative except as per history of present illness. Medications Home Meds Active Scripts Prednisone* (Prednisone*) 20 Mg Tab, 40 MG PO DAILY for 4 Days, TAB Prov:JOSE TAYLOR PA-C 07/26/17 Famotidine* (Famotidine*) 20 Mg Tablet, 20 MG PO BID, #60 TAB Prov:JOSE TAYLOR PA-C 07/26/17 Docusate Sodium* (Colace*) 100 Mg Capsule, 100 MG PO BID, #60 CAP Prov:JOSE TAYLOR PA-C 07/26/17 Ibuprofen* (Motrin*) 800 Mg Tab, 800 MG PO Q6, #30 TAB Prov:JOSE TAYLOR PA-C 07/26/17 Methylprednisolone* (Medrol* DOSE PACK) 4 Mg/Dose-Pack Tab.ds.pk, 4 MG PO . DIRECTED for 6 Days, PACKET Prov:ANDER TALBOTNA [place] 06/24/17 Docusate Sodium* (Colace*) 100 Mg Capsule, 100 MG PO TID, #30 CAP Prov:ANDER TALBOTNA C 06/24/17 Famotidine* (Pepcid*) 20 Mg Tablet, 20 MG PO BID for 14 Days, TAB Prov:DAHIANA,SHARITA C 06/24/17 Ibuprofen* (Motrin*) 800 Mg Tab, 800 MG PO Q8, #30 TAB Prov:DAHIANASHARITA C 06/24/17 Ibuprofen* (Motrin*) 600 Mg Tab, 600 MG PO Q8 for PAIN AND/OR INFLAMMATION, #30 TAB Prov:ROSE LESTER MD 01/25/17 Alprazolam* (Xanax*) 0.5 Mg Tab, 0.5 MG PO TID Y for ANXIETY, #12 TAB Prov:ROSE LESTER MD 11/02/16 Epinephrine (Epipen 2-[place]) 0.3 Mg/0.3 Ml Pen.injctr, 1 EA INJ ONCE Y for ALLERGIC REACTION, #1 EA Prov:ROSE LESTER MD 11/02/16 Prednisone* (Prednisone*) 20 Mg Tab, 40 MG PO DAILY for 4 Days, TAB Prov:ROSE LESTER MD 11/02/16 Ibuprofen* (Motrin*) 800 Mg Tab, 800 MG PO TID Y for PAIN AND/OR INFLAMMATION, # 30 TAB Prov:ROSE LESTER MD 11/02/16 Hydrocortisone Acetate (Anusol-Hc) 25 Mg Supp.rect, 1 SUPP [place] BID Y for HEMORROID PAIN/ITCHING, #12 SUPP.RECT Prov:JUDY COLEMAN PA-C 06/22/16 Docusate Sodium* (Colace*) 100 Mg Capsule, 100 MG PO TID, #30 CAP Prov:JUDY COLEMANC 06/22/16 Famotidine* (Pepcid*) 20 Mg Tablet, 20 MG PO BID, #30 TAB Prov:JUDY COLEMANC 06/22/16 Ibuprofen* (Motrin*) 800 Mg Tab, 800 MG PO Q6, #30 TAB Prov:JUDY COLEMANC 06/22/16 Ibuprofen* (Motrin*) 800 Mg Tab, 800 MG PO Q6, #30 TAB Prov:CLAYTON FERREIRA PA-C 05/12/16 Ibuprofen* (Ibuprofen*) 800 Mg Tablet, 800 MG PO Q8H, #30 TAB Prov:JOSE TAYLORC 03/18/16 Famotidine* (Pepcid*) 20 Mg Tablet, 20 MG PO BID for 7 Days, TAB Prov:CLAYTON FERREIRA PA-C 02/23/16 Docusate Sodium* (Colace*) 100 Mg Capsule, 100 MG PO BID, #30 CAP Prov:CLAYTON FERREIRA PA-C 02/23/16 Ibuprofen* (Motrin*) 800 Mg Tab, 800 MG PO Q6, #30 TAB Prov:CLAYTON FERREIRAC 02/23/16 Ondansetron Hcl* (Zofran* ODT) 4 mg -ODT Tab.disper, 4 MG PO Q6 Y for NAUSEA AND /OR VOMITING, #10 TAB Prov:CURTIS CHAUDHARI MD 03/07/15 Hydrocodone Bit-Acetaminophen* ([place]*) 10-325 Mg Tablet, 1 TAB PO Q6 Y for PAIN , #10 TAB Prov:CURTIS CHAUDHARI MD 03/07/15 Allergies Allergies: Coded Allergies: Penicillins (Verified Allergy, Unknown, 06/24/17) PMhx/Soc History of Surgery: Yes (ABDOMINAL SURGERY) Anesthesia Reaction: No Hx Neurological Disorder: No Hx Respiratory Disorders: No Hx Cardiac Disorders: No Hx Psychiatric Problems: No Hx Miscellaneous Medical Probl: Yes (THYROID) Hx Alcohol Use: No Hx Substance Use: No Hx Tobacco Use: Yes (occasional) FmHx Family History: No diabetes Physical Exam Vitals Vital Signs Date Time Temp Pulse Resp B/P Pulse Ox O2 Delivery O2 Flow Rate FiO2 07/26/17 14:52 98.1 94 18 173/85 98 Physical Exam INITIAL VITAL SIGNS: Reviewed by me GENERAL: Awake, alert and oriented x 4, well appearing, nontoxic, speaking in full sentences. No acute distress HEAD: Atraumatic NECK: Supple. No masses. Full range of motion. No meningismus. No midline tenderness. EYES: EOMI. PERRL. THROAT: No tonilar erythema or edema. No exudates. Uvula midline. No kissing tonsils. Enlarged tongue RESPIRATORY: Clear to auscultation bilaterally. Symmetric chest wall rise. No wheezing or rales. No accessory muscle use. CV: Regular rate and rhythm. No murmurs, rubs, or gallops. Results 24 hrs Current Medications Medications (Trade) Dose Ordered Sig/Magen Route PRN Reason Start Time Stop Time Status Last Admin Dose Admin Prednisone (Prednisone) 60 mg ONCE ONCE PO 07/26/17 16:30 07/26/17 16:31 Procedures/MDM This patient has tongue swelling. He has been seen here multiple times for the same issue and he states it is related to his thyroid. He has no difficulty breathing and O2 saturation is 98% on room air. He has good relief of the symptoms with short courses of steroids. He was given first dose of prednisone here and discharged with prednisone, Pepcid, Colace, and Motrin. Patient counseled regarding my diagnostic impression and care plan. Prior to discharge all questions answered. Pt agrees with treatment plan and understands strict return precautions. Pt is instructed to follow up with primary care provider within 24-48 hours. Precautionary instructions provided including instructions to return to the ER if not improving or for any worsening or changing symptoms or concerns. Departure Diagnosis: Primary Impression: Tongue swelling Condition: Stable Patient Instructions: Dental Pain Additional Instructions: Call your primary care doctor TOMORROW for an appointment during the next 1-2 days.See the doctor sooner or return here if your condition worsens before your appointment time. JOSE TAYLOR PA-C Jul 26, 2017 16:20
[2017-07-26 16:29] VITALS: BP 153/85; PULSE 72; RESP 18
[2017-07-26] MEDS ORDERED: predniSONE 20 MG TAB PO ONE (16:30)
== END 2017-07-26 16:31 | disposition home or self-care (01) ==
LOC: FTE 14:50
DX: K14.8 Other diseases of tongue (principal); Z87.891 Personal history of nicotine dependence
CPT/HCPCS: J7512; Z7502; 99283

== ENCOUNTER 2017-09-30 12:30 | Emergency (ER) | END 2017-09-30 14:00 | disposition home or self-care (01) ==

== ENCOUNTER 2018-01-31 13:34 | Emergency (ER) | END 2018-01-31 17:47 | disposition home or self-care (01) ==

== ENCOUNTER 2018-03-14 18:37 | Emergency (ER) | END 2018-03-14 19:24 | disposition home or self-care (01) ==

== ENCOUNTER 2019-01-11 09:23 | Emergency (ER) | payer OTHER ==
[~2019-01-11] VITALS: Wt 106.0 kg
[~2019-01-11 09:23] MED LIST changes: +FAMO20TA18 PO; +HYDR-4011 PO; +IBUP-1544 PO; -IBUP800T25 PO; +IBUP800T48 PO
[2019-01-11 09:25] VITALS: BP 150/76; PULSE 90; RESP 18
[2019-01-11] MEDS ORDERED: PRED20TA PO (09:47)
[2019-01-11] MEDS ORDERED: IBUP800T48 PO (09:47)
[2019-01-11] MEDS ORDERED: IBUPROFEN 800 MG TAB PO ONE (10:00)
[2019-01-11] MEDS ORDERED: DEXAMETHASONE 10 MG/ML 1 ML INJ IM ONE (10:00)
--- NOTE | 2019-01-11 13:20 | ERD ---
ER Documentation Chief Complaint Chief Complaint SORE THROAT HPI 58-year-old male presenting with a sore throat. Patient states he had this before and been given steroids. He had enlarged lymph nodes in the past. He states that 800 mg of ibuprofen also helps his symptoms and denies any fevers. Denies medical problems. Allergy to penicillin. Surgical history denies. Social history denies ROS All systems reviewed and are negative except as per history of present illness. Medications Home Meds Active Scripts Ibuprofen* (Motrin*) 800 Mg Tab, 800 MG PO Q6, #30 TAB Prov:JAKE JOHNSON PA-C 01/11/19 Prednisone* (Prednisone*) 20 Mg Tab, 40 MG PO DAILY for 4 Days, TAB Prov:JAKE JOHNSON PA-C 01/11/19 Ibuprofen* (Motrin*) 600 Mg Tab, 600 MG PO Q6, #30 TAB Prov:SHARITA TALBOT 01/31/18 Hydrocodone/Acetaminophen ([place] 5-325 Tablet) 1 Each Tablet, 1 TAB PO Q6H PRN for PAIN, #20 TAB Prov:SHARITA TALBOT 01/31/18 Famotidine* (Pepcid*) 20 Mg Tablet, 20 MG PO BID for 15 Days, #30 TAB Prov:QIAN BOLAÑOS MD 09/30/17 Prednisone* (Prednisone*) 20 Mg Tab, 40 MG PO DAILY for 4 Days, TAB Prov:QIAN BOLAÑOS MD 09/30/17 Docusate Sodium* (Colace*) 100 Mg Capsule, 100 MG PO BID, #30 CAP Prov:QIAN BOLAÑOS MD 09/30/17 Ibuprofen* (Motrin*) 600 Mg Tab, 600 MG PO Q6, #30 TAB Prov:QIAN BOLAÑOS MD 09/30/17 Prednisone* (Prednisone*) 20 Mg Tab, 40 MG PO DAILY for 4 Days, TAB Prov:JOSE TAYLOR PA-C 07/26/17 Famotidine* (Famotidine*) 20 Mg Tablet, 20 MG PO BID, #60 TAB Prov:JOSE TAYLOR PA-C 07/26/17 Docusate Sodium* (Colace*) 100 Mg Capsule, 100 MG PO BID, #60 CAP Prov:JOSE TAYLOR PA-C 07/26/17 Ibuprofen* (Motrin*) 800 Mg Tab, 800 MG PO Q6, #30 TAB Prov:JOSE TAYLOR RAJESH 07/26/17 Methylprednisolone* (Medrol* DOSE PACK) 4 Mg/Dose-Pack Tab.ds.pk, 4 MG PO . DIRECTED for 6 Days, PACKET Prov:SHARITA TALBOT 06/24/17 Docusate Sodium* (Colace*) 100 Mg Capsule, 100 MG PO TID, #30 CAP Prov:SHARITA TALBOT 06/24/17 Famotidine* (Pepcid*) 20 Mg Tablet, 20 MG PO BID for 14 Days, TAB Prov:SHARITA TALBOT 06/24/17 Ibuprofen* (Motrin*) 800 Mg Tab, 800 MG PO Q8, #30 TAB Prov:SHARITA TALBOT 06/24/17 Ibuprofen* (Motrin*) 600 Mg Tab, 600 MG PO Q8 for PAIN AND/OR INFLAMMATION, #30 TAB Prov:ROSE LESTER MD 01/25/17 Alprazolam* (Xanax*) 0.5 Mg Tab, 0.5 MG PO TID PRN for ANXIETY, #12 TAB Prov:ROSE LESTER MD 11/02/16 Epinephrine (Epipen 2-[place]) 0.3 Mg/0.3 Ml Pen.injctr, 1 EA INJ ONCE PRN for ALLERGIC REACTION, #1 EA Prov:ROSE LESTER MD 11/02/16 Prednisone* (Prednisone*) 20 Mg Tab, 40 MG PO DAILY for 4 Days, TAB Prov:ROSE LESTER MD 11/02/16 Ibuprofen* (Motrin*) 800 Mg Tab, 800 MG PO TID PRN for PAIN AND/OR INFLAMMATION, #30 TAB Prov:ROSE LESTER MD 11/02/16 Hydrocortisone Acetate (Anusol-Hc) 25 Mg Supp.rect, 1 SUPP [place] BID PRN for HEMORROID PAIN/ITCHING, #12 SUPP.RECT Prov:JUDY COLEMAN PA-C 06/22/16 Docusate Sodium* (Colace*) 100 Mg Capsule, 100 MG PO TID, #30 CAP Prov:JUDY COLEMAN PA-C 06/22/16 Famotidine* (Pepcid*) 20 Mg Tablet, 20 MG PO BID, #30 TAB Prov:JUDY COLEMAN PA-C 06/22/16 Ibuprofen* (Motrin*) 800 Mg Tab, 800 MG PO Q6, #30 TAB Prov:JUDY COLEMAN PA-C 06/22/16 Ibuprofen* (Motrin*) 800 Mg Tab, 800 MG PO Q6, #30 TAB Prov:CLAYTON FERREIRAC 05/12/16 Ibuprofen* (Ibuprofen*) 800 Mg Tablet, 800 MG PO Q8H, #30 TAB Prov:JOSE TAYLORC 03/18/16 Famotidine* (Pepcid*) 20 Mg Tablet, 20 MG PO BID for 7 Days, TAB Prov:CLAYTON FERREIRAC 02/23/16 Docusate Sodium* (Colace*) 100 Mg Capsule, 100 MG PO BID, #30 CAP Prov:CLAYTON FERREIRA PA-C 02/23/16 Ibuprofen* (Motrin*) 800 Mg Tab, 800 MG PO Q6, #30 TAB Prov:CLAYTON FERREIRAC 02/23/16 Ondansetron Hcl* (Zofran* ODT) 4 mg -ODT Tab.disper, 4 MG PO Q6 PRN for NAUSEA AND/OR VOMITING, #10 TAB Prov:CURTIS CHAUDHARI MD 03/07/15 Hydrocodone Bit-Acetaminophen* ([place]*) 10-325 Mg Tablet, 1 TAB PO Q6 PRN for PAIN, #10 TAB Prov:CURTIS CHAUDHARI MD 03/07/15 Allergies Allergies: Coded Allergies: Penicillins (Verified Allergy, Unknown, 09/30/17) PMhx/Soc History of Surgery: Yes (ABDOMINAL SURGERY) Anesthesia Reaction: No Hx Neurological Disorder: No Hx Respiratory Disorders: No Hx Cardiac Disorders: No Hx Psychiatric Problems: No Hx Miscellaneous Medical Probl: Yes (THYROID) Hx Alcohol Use: Yes (social) Hx Substance Use: No Hx Tobacco Use: Yes (occasional) Smoking Status: Current some day smoker FmHx Family History: No diabetes, No coronary disease, No other Physical Exam Vitals Vital Signs Date Temp Pulse Resp B/P (MAP) Pulse Ox O2 O2 Flow FiO2 Time Delivery Rate 01/11/19 98.1 90 18 150/76 99 09:25 (100) Physical Exam GENERAL: The patient is well-appearing, well-nourished, in no acute distress HEENT: Atraumatic. Conjunctivae are pink. Pupils equal, round, and reactive to light. There is no scleral icterus. Tympanic membranes clear bilaterally. Oropharynx clear. NECK: C-spine is soft and supple. There is no meningismus. There is no cervical lymphadenopathy. CHEST: Clear to auscultation bilaterally. There are no rales, wheezes or rhonchi. HEART: Regular rate and rhythm. No murmurs, clicks, rubs or gallops. Results 24 hrs Current Medications Medications Dose Sig/Magen Start Time Status Last (Trade) Ordered Route PRN Stop Time Admin Dose Reason Admin 10 mg ONCE ONCE 01/11/19 DC 01/11/19 Dexamethasone IM 10:00 09:52 (Decadron) 01/11/19 10:01 Ibuprofen 800 mg ONCE ONCE 01/11/19 DC 01/11/19 (Motrin) PO 10:00 09:52 01/11/19 10:01 Procedures/MDM ER course: Decadron and 800 mg ibuprofen given in ED. MDM: 58-year-old male presenting with sore throat. I have low suspicion for peritonsillar or retropharyngeal abscess. I have low suspicion for infectious process requiring antibiotics.. Patient likely has viral syndrome. Patient is discharged with supportive medications and told to follow-up with primary care within 1 to 2 days for close evaluation. Patient is told symptoms change or worsen to return immediately to the ER. All questions answered at discharge Departure Diagnosis: Primary Impression: Sore throat Condition: Stable Patient Instructions: Self-Care for Sore Throats Referrals: [facility] (PCP) Additional Instructions: FOLLOW UP WITH YOUR PRIMARY CARE PHYSICIAN TOMORROW.Return to this facility if you are not improving as expected. JAKE JOHNSON PA-C Jan 11, 2019 13:20
== END 2019-01-11 09:55 | disposition home or self-care (01) ==
LOC: FTE 09:23
DX: J02.9 Acute pharyngitis, unspecified (principal); F17.210 Nicotine dependence, cigarettes, uncomplicated
CPT/HCPCS: 96372; J1100; Z7502; Z7610